=== PATIENT | female | born 1935 | race Caucasian/White ===

== ENCOUNTER 2022-06-09 07:09 | Day surgery (SDC) | payer MEDICARE ==
[~2022-06-09 07:09] MED LIST: Lactated Ringers 1,000 ML IV SCH
[2022-06-09] MEDS ORDERED: Propofol 200 MG/20 ML SDV ONE ×2 (07:49→09:16)
[2022-06-09] MEDS ORDERED: Lidocaine 2% 5 ML SDV ONE (07:49)
[2022-06-09] MEDS ORDERED: fentaNYL 100 MCG/2 ML SDV ONE (07:49)
[2022-06-09] MEDS ORDERED: Lactated Ringers 1,000 ML IV SCH (09:45)
== END 2022-06-09 10:38 | disposition home or self-care (01) ==
LOC: MW.SDS 07:09
PROVIDERS: ATTEND Surgery
DX: K57.30 Diverticulosis of large intestine without perforation or abscess without bleeding (principal); K64.8 Other hemorrhoids; I10 Essential (primary) hypertension; D64.9 Anemia, unspecified; K21.9 Gastro-esophageal reflux disease without esophagitis; E78.00 Pure hypercholesterolemia, unspecified; E11.9 Type 2 diabetes mellitus without complications; Z79.899 Other long term (current) drug therapy; Z79.82 Long term (current) use of aspirin; Z98.890 Other specified postprocedural states
CPT/HCPCS: 45380; J2704; J3010; J7120; 00811; 99100